=== PATIENT | male | born 1990 | race African-American/Black ===

== ENCOUNTER 2016-08-08 02:30 | Emergency (ER) | payer SELFPAY ==
[2016-08-08] MEDS ORDERED: HYDROCODONE/ACETAMINOPHEN 5-325 MG 6 TAB/DSPK PO PRN (03:50)
--- NOTE | 2016-08-08 03:55 | ER Document Report ---
ED Extremity Problem, Lower - General Chief Complaint: Knee Injury Stated Complaint: FALL,KNEE PAIN Mode of Arrival: Ambulatory Information source: Patient Notes: Patient is a 25-year-old -[place] male who presents to the ER today for left knee pain after he fell onto his bed prior to arrival. Patient denies any numbness or tingling and can place weight on it. TRAVEL OUTSIDE OF THE [place] IN LAST 30 DAYS: No - Related Data Allergies/Adverse Reactions: iodine Allergy (Verified 06/27/16 09:56) Past Medical History - General Information source: Patient - Social History Smoking Status: Unknown if Ever Smoked Family History: Reviewed & Not Pertinent Patient has suicidal ideation: No Patient has homicidal ideation: No - Immunizations Hx Diphtheria, Pertussis, Tetanus Vaccination: Yes Review of Systems - Review of Systems Constitutional: No symptoms reported EENT: No symptoms reported Cardiovascular: No symptoms reported Respiratory: No symptoms reported Gastrointestinal: No symptoms reported Genitourinary: No symptoms reported Male Genitourinary: No symptoms reported Musculoskeletal: See HPI Skin: No symptoms reported Hematologic/Lymphatic: No symptoms reported Neurological/Psychological: No symptoms reported Physical Exam - Notes Notes: PHYSICAL EXAMINATION: GENERAL: Well-appearing and in no acute distress. HEAD: Atraumatic, normocephalic. EYES: Pupils equal round and reactive to light, extraocular movements intact, sclera anicteric, conjunctiva are normal. NECK: Normal range of motion, supple without lymphadenopathy LUNGS: CTAB and equal. No wheezes rales or rhonchi. HEART: Regular rate and rhythm without murmurs EXTREMITIES: mildly tender to left anterior/lateral knee, Normal range of motion , no pitting edema. No cyanosis. NEUROLOGICAL: Cranial nerves grossly intact. Normal sensory/motor exams. PSYCH: Normal mood, normal affect. SKIN: Warm, Dry, normal turgor, no rashes or lesions noted Course - Re-evaluation Re-evalutation: 08/08/16 04:00 X-ray of the left knee negative for any acute pathology. Patient will be placed in a knee immobilizer brace and given crutches. Discharge - Discharge Clinical Impression: Left knee injury Qualifiers: Encounter type: initial encounter Qualified Code(s): S89.92XA - Unspecified injury of left lower leg, initial encounter Condition: Stable Disposition: HOME, SELF-CARE Instructions: Use of Crutches ([facility]), Knee Immobilizing Splint ([facility]) Additional Instructions: Return immediately for any new or worsening symptoms. Follow up with primary care provider, call tomorrow to make followup appointment. Prescriptions: Ibuprofen [Motrin 800 mg Tablet] 800 mg PO Q8H PRN #30 tab PRN Reason: Forms: Return to Work
[2016-08-08 04:32] VITALS: BP 121/67
== END 2016-08-08 04:30 | disposition home or self-care (01) ==
LOC: ER 02:30
DX: M25.561 Pain in right knee (principal); W19.XXXA Unspecified fall, initial encounter
CPT/HCPCS: 99283; 73562; L1830

== ENCOUNTER 2018-06-19 23:10 | Emergency (ER) | payer SELFPAY ==
[2018-06-19 23:21] VITALS: BP 140/80
--- NOTE | 2018-06-20 00:25 | ER Document Report ---
ED General - General Chief Complaint: Cough Stated Complaint: COUGH Time Seen by Provider: 06/20/18 00:20 Notes: 27-year male presents with 2 days of cough, sneezing congestion and right epistaxis. This is intermittent and small, resolved spontaneously. He feels tingling in his nose. No oral lesions no shortness of breath no pulmonary symptoms. Patient smells of marijuana but denies smoking it. TRAVEL OUTSIDE OF THE [place] IN LAST 30 DAYS: No - Related Data Allergies/Adverse Reactions: iodine Allergy (Verified 06/27/16 09:56) Past Medical History - Social History Smoking Status: Never Smoker Family History: Reviewed & Not Pertinent - Immunizations Hx Diphtheria, Pertussis, Tetanus Vaccination: Yes Review of Systems - Review of Systems Notes: REVIEW OF SYSTEMS GEN: Denies fever, chills, weight loss ENT: Denies sore throat, nasal discharge, ear pain bleed. EYES: Denies blurry vision, eye pain, discharge CV: Denies chest pain, palpitations, edema RESP: Cough and sneezing GI: Denies abdominal pain, nausea, vomiting, diarrhea MSK: Denies joint pain/swelling, edema, SKIN: Denies rash, skin lesions LYMPH: Denies swollen glands/lymph nodes NEURO: Denies headache, focal weakness or numbness, dizziness PSYCH: Denies depression, suicidal or homicidal ideation PHYSICAL EXAMINATION General: No acute distress, well-nourished Head: Atraumatic, normocephalic ENT: Mouth normal, oropharynx moist, no exudates or tonsillar enlargement possible small herpetic lesion in the anterior of the right nare with small blood. Eyes: Conjunctiva normal, pupils equal, lids normal Neck: No JVD, supple, no guarding CVS: Normal rate, regular rhythm, no murmurs Resp: No resp distress, equal and normal breath sounds bilaterally GI: Nondistended, soft, no tenderness to palpation, no rebound or guarding Ext: No deformities, no edema, normal range of motion in upper and lower ext Back: No CVA or midline TTP Skin: No rash, warm Lymphatic: No lymphadeopathy noted Neuro: Awake, alert. Face symmetric. GCS 15. Physical Exam - Vital signs Vitals: Temp Pulse Resp BP Pulse Ox 98.6 F 77 20 140/80 H 95 06/19/18 23:20 06/19/18 23:20 06/19/18 23:20 06/19/18 23:20 06/19/18 23:20 Course - Re-evaluation Re-evalutation: 06/20/18 00:24 Patient presents with URI symptoms, possible small herpetic lesion in the right nare but no ongoing epistaxis. Vitals normal lungs clear. Supportive care recommended. I have discussed with the patient there likely diagnosis, aftercare plan, follow-up plans and my usual and customary return precautions. They verbalized understanding of this. - Vital Signs Vital signs: Temp Pulse Resp BP Pulse Ox 98.6 F 77 20 140/80 H 95 06/19/18 23:20 06/19/18 23:20 06/19/18 23:20 06/19/18 23:20 06/19/18 23:20 Discharge - Discharge Clinical Impression: Upper respiratory infection Qualifiers: URI type: unspecified viral URI Qualified Code(s): J06.9 - Acute upper respiratory infection, unspecified Condition: Good Disposition: HOME, SELF-CARE Instructions: Upper Respiratory Illness ([facility]), Nosebleed Instructions ([facility]) Referrals: [facility] [Provider Group] - Follow up as needed
== END 2018-06-20 00:32 | disposition home or self-care (01) ==
LOC: ER 23:10
DX: J06.9 Acute upper respiratory infection, unspecified (principal); R04.0 Epistaxis
CPT/HCPCS: 99283

== ENCOUNTER 2020-03-09 12:45 | Emergency (ER) | payer SELFPAY ==
[2020-03-09] MEDS ORDERED: ALBUTEROL SULFATE 0.083% NEB 2.5 MG/3 ML AMPUL NEB ONE (15:15)
--- NOTE | 2020-03-09 16:04 | RADIOLOGY REPORT (SQ) ---
EXAM DESCRIPTION: CHEST SINGLE VIEW IMAGES COMPLETED DATE/TIME: 03/09/2020 3:52 pm REASON FOR STUDY: wheezing COMPARISON: None. EXAM PARAMETERS: NUMBER OF VIEWS: One view. TECHNIQUE: Single frontal radiographic view of the chest acquired. RADIATION DOSE: NA LIMITATIONS: None. FINDINGS: LUNGS AND PLEURA: No opacities, masses or pneumothorax. No pleural effusion. MEDIASTINUM AND HILAR STRUCTURES: No masses. Contour normal. HEART AND VASCULAR STRUCTURES: Heart normal in size. Normal vasculature. BONES: No acute findings. HARDWARE: None in the chest. OTHER: No other significant finding. IMPRESSION: NO ACUTE RADIOGRAPHIC FINDING IN THE CHEST. TECHNICAL DOCUMENTATION: JOB ID: [id number] 2010 [employer]- All Rights Reserved Reading location - IP/workstation name: [email or web address]
--- NOTE | 2020-03-09 16:57 | ER Document Report ---
ED General - General Stated Complaint: CONGESTION Time Seen by Provider: 03/09/20 14:44 Notes: 29-year-old male with past medical history of childhood asthma presenting with 4 days of symptoms of mild cough, low-grade fever, sinus congestion and sore throat. He states that all of his symptoms have resolved except his sinus tenderness. States that he is blowing some greenish-yellowish discharge. Sinuses are tender to palpation. He has only tried taking Mucinex at this time. He denies any additional symptoms at this time to include shortness of breath and chest pain. TRAVEL OUTSIDE OF THE [place] IN LAST 30 DAYS: No - Related Data Allergies/Adverse Reactions: iodine Allergy (Verified 03/09/20 17:36) Past Medical History - Social History Smoking Status: Current Every Day Smoker Family History: Reviewed & Not Pertinent Renal/ Medical History: Denies: Hx Peritoneal Dialysis - Immunizations Hx Diphtheria, Pertussis, Tetanus Vaccination: Yes Review of Systems - Review of Systems Constitutional: No symptoms reported EENT: See HPI Cardiovascular: No symptoms reported Respiratory: No symptoms reported Gastrointestinal: No symptoms reported Genitourinary: No symptoms reported Male Genitourinary: No symptoms reported Musculoskeletal: No symptoms reported Skin: No symptoms reported Hematologic/Lymphatic: No symptoms reported Neurological/Psychological: No symptoms reported Physical Exam - Vital signs Vitals: Temp 99.4 F 03/09/20 14:45 Interpretation: Normal - Notes Notes: Adult General: GENERAL: Alert, interacts well. No acute distress HEAD: Normocephalic, atraumatic EYES: Pupils equal, round and reactive to light. Extraocular movements intact. ENT: Oral mucosa moist, tongue midline. Oropharynx unremarkable, airway patent. Nares patent, maxillary sinues tender to palpation. No Trismus. NECK: Full range of motion. Supple. Trachea midline. No lymphadenopathy. LUNGS: Bilateral wheezing in upper lung ascencio. No rales, or rhonchi. No respiratory distress. Nontender chest wall. HEART: Regular rate and rhythm. No murmurs, rubs or gallops. ABDOMEN: Soft, nontender. Nondistended. GENITOURINARY: Deferred EXTREMITIES: Moves all 4 extremities spontaneously. BACK: Moves all extremities with full range of motion. NEUROLOGICAL: Alert and oriented x3. Normal speech. Strength 5/ 5 in all extremities. PSYCH: Normal affect, normal mood. SKIN: Warm, dry, normal turgor. No rashes or lesions noted. Course - Re-evaluation Re-evalutation: 03/09/20 16:58 Patient's lungs have wheezes and right upper quadrants. I will go ahead and order nebulizer treatment at this time. I discussed with the patient that based on the severity of his symptoms at this time I will going to treat him for sinus infection. I did discuss with him that they typically take 7 to 10 days to truly resolve. I also discussed with him to schedule a follow-up appointment with a primary care provider to have further evaluation for his asthma. Return precautions discussed. Patient acknowledges and verbalizes understanding of instructions and plan. All questions answered. - Vital Signs Vital signs: Temp Pulse Resp BP Pulse Ox 98.9 F 77 18 147/88 H 100 03/09/20 18:09 03/09/20 18:09 03/09/20 18:09 03/09/20 18:09 03/09/20 18:09 Discharge - Discharge Clinical Impression: History of asthma Acute sinusitis Qualifiers: Sinusitis location: unspecified location Condition: Stable Disposition: HOME, SELF-CARE Instructions: Sinusitis ([facility]) Additional Instructions: you are being treated with antibiotics. Please take medication as prescribed. Please follow-up with your primary care provider as soon as possible. You may return to the emergency department for worsening symptoms or development of new symptoms. Prescriptions: Amoxicillin/Potassium Clav [Augmentin 875-125 Tablet] 1 tab PO Q12 5 Days #10 tablet
[2020-03-09 18:48] VITALS: BP 147/88
== END 2020-03-09 18:10 | disposition home or self-care (01) ==
LOC: ER 12:45
DX: J45.909 Unspecified asthma, uncomplicated (principal); J32.9 Chronic sinusitis, unspecified; F17.200 Nicotine dependence, unspecified, uncomplicated
CPT/HCPCS: 71045; 94640; 99283